=== PATIENT | male | born 1935 | race African-American/Black ===

== ENCOUNTER 2020-03-11 05:12 | Day surgery (SDC) | payer OTHER ==
[2020-03-07 17:27] VITALS: BMI 27.7
[2020-03-11] MEDS ORDERED: oxyCODONE HCL 5 MG TABLET PO PRN (12:27)
[2020-03-11] MEDS ORDERED: ONDANSETRON 4 MG/2 ML VIAL IVPUSH PRN (12:27)
[2020-03-11] MEDS ORDERED: LACTATED RINGERS SOLUTION 1,000 ML IV SCH (12:30)
[2020-03-11] MEDS ORDERED: LIDOCAINE HCL/PF 2% SDV 5ML VIAL ONE (12:42)
[2020-03-11] MEDS ORDERED: PROPOFOL 20 ML ONE (12:42)
[2020-03-11] MEDS ORDERED: ceFAZolin SODIUM 1 GM VIAL IVPB ONE (12:59)
[2020-03-11] MEDS ORDERED: ceFAZolin SODIUM 1 GM VIAL ONE (13:00)
--- NOTE | 2020-03-11 13:50 | HP ---
History & Physical Update - History History: No Change - Physical Physical: No Change - Assessment Assessment: No Change - Plan Plan: No Change
--- NOTE | 2020-03-11 13:53 | OP ---
Operative Note - Note: Operative Date: 03/11/20 Pre-Operative Diagnosis: R ureteral calculi Operation: R ureteroscopic laser lithotripsy and JJ stent insertion Findings: R distal ureteral calculi x 2, mod R hydronephrosis Post-Operative Diagnosis: Same as Pre-op Surgeon: Christiano Vuong Anesthesiologist/PRECISION LENS POLISHER: Inga Wakefield Anesthesia: General Estimated Blood Loss (mls): 0 Drains, Volume Out (mls): 0 Operative Report Dictated: Yes
--- NOTE | 2020-03-11 14:19 | OP ---
DATE OF OPERATION: 03/11/2020 PREOPERATIVE DIAGNOSIS: Right ureteral calculi, right hydronephrosis. POSTOPERATIVE DIAGNOSIS: Right ureteral calculi, right hydronephrosis. PROCEDURE: Cystoscopy, right ureteroscopic laser lithotripsy, right double-J stent insertion. SURGEON: Christiano Gonzalez MD ELEMENTARY SCIENCE TEACHER: None. ANESTHESIA: General via laryngeal mask. ANESTHESIOLOGIST: Inga Wakefield CRNA SPECIMEN: Right ureteral calculi. CULTURES: None. DRAINS: A 6-[place] 24-cm right double-J stent. ESTIMATED BLOOD LOSS: Negligible. COMPLICATION: None. PROCEDURE: Patient was brought into the operating room, placed on the operating table in the supine position. After administration of general anesthesia via laryngeal mask, intravenous antibiotics were administered. Sequential compression devices were placed. Patient was placed in the dorsal lithotomy position. Genitals and perineum were prepped and draped in the usual sterile fashion. A 22-[place] cystoscope was inserted into the bladder under direct vision. Anterior urethra was normal. The prostatic urethra demonstrated moderate BPH. The bladder was entered, thoroughly inspected where there were no foreign bodies, tumors, stones or inflammation. Both ureteral orifices were in their usual location with diminished efflux on the right. 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 This was shallow and wide-mouthed. Now the right ureteral orifice was cannulated with a 0.038 guidewire which was advanced to the level of the right renal pelvis under fluoroscopic and direct visual guidance. Dual-lumen catheter was inserted. Retrograde pyelogram was done, demonstrated 2 distal ureteral calculi, moderate right hydronephrosis. Guidewire was left in place with coil in the renal pelvis and then the semirigid ureteroscope was inserted alongside the guidewire into the distal ureter where these 2 stones were seen. A 365-micron laser fiber was inserted. Laser lithotripsy was done until the stones were fragmented into small enough pieces to be basketed. Once all stone fragments were basketed and removed, the dual-lumen catheter was reinserted. Retrograde pyelogram was done, demonstrated no extravasation of contrast, no additional calculi and moderate right hydronephrosis with the guidewire in place. Cystoscope was back-loaded. A 6-[place] 24-cm right double-J stent was inserted over the guidewire under direct visual and fluoroscopic guidance leaving 1 coil in the renal pelvis and 1 coil in the bladder. CHRISTIANO GONZALEZ M.D. [id number]
[2020-03-11 16:16] VITALS: BP 130/60; PULSE 64; TEMP 97.8
--- NOTE | 2020-03-13 18:51 | PATH ---
Surgical Pathology Report Patient Name: STAS JANE JR Med. Rec. #: [id number] /Age/Gender: 1935 (Age: 84) / M Account: [id number] Location: [facility] SURGICAL Taken: 03/11/2020 Received: 03/12/2020 Reported: 03/13/2020 Physicians: Christiano Vuong M.D. Specimen(s) Received KIDNEY STONE, RIGHT Clinical History Calculus of right ureter Final Diagnosis KIDNEY STONE, RIGHT, LASER LITHOTRIPSY: RENAL CALCULI. MACROSCOPIC DIAGNOSIS. Electronically Signed Patricia Landis M.D. Gross Description Received fresh labeled "kidney stone right," are 9 poe-brown, irregular calculi ranging from 0.3-0.7 cm in greatest dimension. The specimen is sent for chemical analysis. /03/12/2020 saudi/03/12/2020
== END 2020-03-11 16:10 | disposition home or self-care (01) ==
LOC: JASU-SURG 05:12 → UNDOADMIN 05:19 → J2C 05:19 → JASU-SURG 16:10
PROVIDERS: ATTEND Urology
PROC: 0TC68ZZ Extirpation of Matter from Right Ureter, Via Natural or Artificial Opening Endoscopic (ICD-10-PCS; principal; 2020-03-11 13:00)
PROC: 0T768DZ Dilation of Right Ureter with Intraluminal Device, Via Natural or Artificial Opening Endoscopic (ICD-10-PCS; 2020-03-11 13:00)
DX: N13.2 Hydronephrosis with renal and ureteral calculous obstruction (principal)
CPT/HCPCS: 36415; 76000-TC-FY; 82360; 88300-TC; 94760